=== PATIENT | male | born 2000 | race Caucasian/White ===

== ENCOUNTER 2020-05-24 14:10 | Emergency (ER) | payer SELFPAY ==
--- NOTE | 2020-05-24 15:31 | HMH.EDUTC ---
[facility] [place] Clinical Impression: Exposure to COVID-19 virus Disposition: Home, Self-Care Condition on Discharge: Good Instructions: Preventing the Spread of Coronavirus Discharge Instructions Additional Instructions: You have been tested for COVID19. Those results are generally available in 48-72 hours. Please act as if you are positive and quarantine yourself until results are received. Referrals: PCP,No [Primary Care Provider] - Time of Disposition: 16:06 Medical Decision Making - Cezar Inquiry Pt receiving controlled substance: No Vital Signs: 05/24/20 15:35 Temperature 97.9 F Temperature Source Oral Pulse Rate [Right Brachial] 63 Respiratory Rate 20 Blood Pressure [Right Arm] 122/70 Blood Pressure Mean [Right Arm] 87 Blood Pressure Source [Right Arm] Automatic Cuff Blood Pressure Position [Right Arm] Sitting 02 Sat by Pulse Oximetry 98 Oxygen Delivery Method Room Air - Lab Data Lab results reviewed: Yes: I reviewed the patient's lab results. Orders (Tests/Meds): ORDERS Category Date Time Status SARS-CoV-2, E[place] ([place]) Stat Lab 05/24/20 15:40 Ordered [facility] [place] HPI - General Stated complaint: Sore throat; cough vomiting diarrhea Time Seen by Provider: 05/24/20 15:32 - History of Present Illness Provider Complaint: Sore throat, fever, cough, runny nose, vomiting X 1 week. Coworker positive COVID-19 and work has requested he be tested. Onset (ago): week(s) (1) Location: face Relieving factors: none Exacerbating factors: none Associated symptoms: fever/chills, nausea/vomiting Treatments prior to arrival: none - Related Data Allergies Allergy/AdvReac Type Severity Reaction Status Date / Time No Known Allergies Allergy Verified 05/24/20 15:40 [facility] History - Hepatitis A Screen Attestation statement:: This patient has been screened for Hepatitis A risk factors. I have reviewed the patient's past medical history: Yes ROS Obtained: Yes All systems reviewed & no additional complaints - Constitutional Constitutional: Reports body ache, Reports fever(s) - ENT Ears, Nose, Mouth, and Throat: Reports sore throat - Gastrointestinal Gastrointestingal: Reports: vomiting Physical Exam - General General appearance: alert, in no apparent distress - Head Head exam: atraumatic, normocephalic, normal inspection - Eye Eye exam: Present: normal appearance, PERRL, EOMI - ENT ENT exam: Present: normal exam, normal oropharynx, mucous membranes moist, TM's normal bilaterally, normal external ear exam - Neck Neck exam: Present: normal inspection, full ROM, trachea midline. Absent: meningismus, lymphadenopathy - Chest Chest inspection: Present: normal inspection, symmetric chest wall rise. Absent: tenderness - Respiratory Respiratory exam: Present: normal lung sounds bilaterally. Absent: respiratory distress - Cardiovascular Cardiovascular exam: Present: regular rate, normal rhythm. Absent: JVD - Abdominal Exam Abdominal exam: Present: soft, normal bowel sounds. Absent: distention, tenderness, guarding - Extremities Exam Extremities exam: Present: normal inspection, full ROM, normal capillary refill. Absent: calf tenderness - Back Exam Back exam: Present: normal inspection. Absent: tenderness - Neurological Exam Neurological exam: Present: alert, oriented X3 - Psychiatric Psychiatric exam: Present: normal affect, normal mood - Skin Skin exam: Present: warm, dry, intact, normal color - Lymphatic Lymphatic Findings: no adenopathy
[2020-05-24 15:35] VITALS: BP 122/70; PULSE 63; RESP 20; TEMP 36.6; O2SAT 98; BMI 29.6
[2020-05-24 16:22] VITALS: BP 122/70; PULSE 63; RESP 20; TEMP 36.6; O2SAT 98
[2020-05-25 18:04] LABS: UTC Strep Screen (Rapid) Negative (Negative)
[2020-05-26 09:56] LABS: Covid-19 Nasal PCR Sendout UK Not Detected
== END 2020-05-24 16:26 | disposition home or self-care (01) ==
PROVIDERS: Emergency Provider Physician Assistant
DX: Z20.828 Contact with and (suspected) exposure to other viral communicable diseases (principal); R05 Cough; R50.9 Fever, unspecified
CPT/HCPCS: 87880; 99202; U0003

== ENCOUNTER → 2020-05-24 16:51 | Outpatient (CLI) | payer SELFPAY | PROVIDERS: Visit Provider Physician Assistant | DX: Z03.818 Encounter for observation for suspected exposure to other biological agents ruled out (principal) ==

== ENCOUNTER → 2020-10-04 14:21 | Outpatient (CLI) | payer SELFPAY ==
[2020-10-04 14:25] LABS: Adenovirus,PCR Not Detected (NotDetected); Bordetella Pertussis Not Detected (NotDetected); Chlamydophila Pneumoniae, PCR Not Detected (NotDetected); Coronavirus 19, PCR Not Detected (NotDetected); Coronavirus 229E Not Detected (NotDetected); Coronavirus NL63 Not Detected (NotDetected); Coronavirus OC43 Not Detected (NotDetected); Coronovirus HKU1,PCR Not Detected (NotDetected); Human Metapneumovirus Not Detected (NotDetected); Influenza A, PCR Not Detected (NotDetected); Influenza AH1, 2009 Not Detected (NotDetected); Influenza AH1, PCR Not Detected (NotDetected); Influenza AH3,PCR Not Detected (NotDetected); Influenza B, PCR Not Detected (NotDetected); Mycoplasma Pneumoniae, PCR Not Detected (NotDetected); Parainfluenza 1, PCR Not Detected (NotDetected); Parainfluenza 2, PCR Not Detected (NotDetected); Parainfluenza 3, PCR Not Detected (NotDetected); Parainfluenza 4, PCR Not Detected (NotDetected); Respiratory Syncytial Virus Not Detected (NotDetected); Rhinovirus/Enterovirus Not Detected (NotDetected)
== END ==
PROVIDERS: Visit Provider Otolaryngology
DX: Z03.818 Encounter for observation for suspected exposure to other biological agents ruled out (principal)
CPT/HCPCS: 87581; 87633; 87798

== ENCOUNTER 2020-10-19 17:27 | Emergency (ER) | payer MEDICAID, SELFPAY ==
[2020-10-19 17:53] VITALS: BP 124/78; PULSE 64; RESP 18; TEMP 36.6; O2SAT 99; BMI 32.0
--- NOTE | 2020-10-19 18:00 | HMH.EDUTC ---
[facility] [place] Dis[place] Clinical Impression: Exposure to COVID-19 virus Disposition: Home, Self-Care Condition on Discharge: Good Instructions: Coronavirus Disease 2019, DI for COVID-19 (Suspected or Confirmed ), Preventing the Spread of Coronavirus Discharge Instructions Additional Instructions: *Monitor Temp, Over the counter Motrin or Tylenol as directed/as needed Tylenol every 4 hours and Motrin every 6 hours (as long as your family doctor has told you that you can take it) for fever or pain. and straight to ER if unable to lower temp less than 101.0 after medication given *Warm salt water gargles may help to soothe the throat *Throat Lozenges *Warm fluids like tea with honey may help to soothe the throat *Sleep elevated *Humidifier/Vaporizer Follow up IMMEDIATELY for new or worsening symptoms or no Noticeable improvement over the next 48-72 hours. 911 for difficulty breathing or swallowing You were tested for today for COVID19 your test result should be back in the next 24-48 hours, you may call to the [facility] to see if your test results are back in the next 48 hours [phone] [facility] hours are 9am-9pm You was given a handout with instructions for Self Quarantine and Self isolation for while you wait on test results and what to do if they are positive If you are positive the Health Dept will be contacting you also Referrals: PCP,No [Primary Care Provider] - As needed Forms: Work/School Release Time of Disposition: 18:03 Medical Decision Making - Cezar Inquiry Pt receiving controlled substance: No Cezar was queried for this patient: No Vital Signs: 10/19/20 17:53 Temperature 97.9 F Temperature Source Oral Pulse Rate [Radial] 64 Respiratory Rate 18 Blood Pressure [Right Arm] 124/78 Blood Pressure Mean [Right Arm] 93 Blood Pressure Source [Right Arm] Automatic Cuff Blood Pressure Position [Right Arm] Sitting 02 Sat by Pulse Oximetry 99 Oxygen Delivery Method Room Air Orders (Tests/Meds): ORDERS Category Date Time Status Covid-19 Nasal PCR ([facility]) Routine Lab 10/19/20 17:50 Received [facility] [place] HPI - General Stated complaint: wants Covid test Time Seen by Provider: 10/19/20 18:00 Mode of Arrival: Ambulatory Source of Information: Patient Limitations: No Limitations Description of Symptoms (Recalled from Triage Doc. by RN): covid test HEENT Symptoms (Recalled from RN notes): No Resp Symptoms (Recalled from RN notes): No Skin Symptoms (Recalled from RN notes): No MS Symptoms (Recalled from RN notes): No Functional Status (Recalled from RN notes): wnl - History of Present Illness Provider Complaint: Patient states that he lives with several people and one of them recently tested positive for COVID States that he has not been having any symptoms but wanted to get tested - Related Data Allergies Allergy/AdvReac Type Severity Reaction Status Date / Time No Known Allergies Allergy Verified 05/24/20 15:40 - Worker's Comp Is this a Worker's Comp case?: No [facility] History - Hepatitis A Screen Drug use history?: No High risk sexual behaviors?: No History of sexually transmitted infection?: No Currently employed?: No Childcare worker?: No Do you have indoor plumbing?: Yes Do you have electricity?: Yes Attestation statement:: This patient has been screened for Hepatitis A risk factors. I have reviewed the patient's past medical history: Yes - Social History Alcohol Intake: never Occupational Status: employed ROS Obtained: Yes All systems reviewed & no additional complaints, Yes Systems reviewed as appropriate & no additional complaints - Constitutional Constitutional: Reports system reviewed and no additional complaints, except as docu, Denies body ache, Denies chills, Denies fever(s), Denies headache(s) - ENT Ears, Nose, Mouth, and Throat: Reports system reviewed and no additional complaints, except as docu, Denies sinus pain, Denies sinus pressure, Denies sore throat - Cardiovascular
[2020-10-19 18:06] VITALS: BP 124/78; PULSE 64; RESP 18; TEMP 36.6; O2SAT 99
== END 2020-10-19 18:08 | disposition home or self-care (01) ==
PROVIDERS: Emergency Provider Nurse Practitioner
DX: Z20.828 Contact with and (suspected) exposure to other viral communicable diseases (principal)
CPT/HCPCS: 99201; U0003

== ENCOUNTER 2020-11-05 18:02 | Emergency (ER) | payer BC, OTHER, SELFPAY ==
[2020-11-05 18:03] VITALS: BP 115/70; PULSE 72; RESP 14; TEMP 36.6; O2SAT 98; BMI 32.0
--- NOTE | 2020-11-05 18:34 | HMH.EDUTC ---
[facility] [place] Disposition Clinical Impression: Viral syndrome, Close exposure to COVID-19 virus Disposition: Home, Self-Care Condition on Discharge: Good Instructions: DI for COVID-19 (Suspected or Confirmed ), Preventing the Spread of Coronavirus Discharge Instructions Additional Instructions: Drink plenty of fluids. Take tylenol for pain or fever. Return if you begin to have difficulty breathing. Follow up with your regular doctor. GO TO THE ER FOR ANY WORSENING SYMPTOMS Prescriptions: Ondansetron [Zofran 4mg ODT] 4 mg PO Q8HP PRN #12 tab.rapdis PRN Reason: Nausea Transmission Status: Received by [facility] Benzonatate [Tessalon Perle 100mg Cap] 100 mg PO TIDP PRN #30 cap PRN Reason: Cough Transmission Status: Received by [facility] Azithromycin [Z-Lane 250mg Tab*] 250 mg PO UD DOSE PK #6 tab Transmission Status: Received by [facility] Referrals: PCP,No [Primary Care Provider] - Forms: Work/School Release Time of Disposition: 18:37 Medical Decision Making - Medical Records Medical records reviewed: No: I reviewed the patient's medical records. - Cezar Inquiry Pt receiving controlled substance: No Vital Signs: 11/05/20 18:03 11/05/20 18:43 Temperature 97.8 F 97.8 F Temperature Source Oral Oral Pulse Rate 72 Pulse Rate [Right] 72 Respiratory Rate 14 14 Blood Pressure 115/70 Blood Pressure [Right Arm] 115/70 Blood Pressure Mean [Right Arm] 85 02 Sat by Pulse Oximetry 98 Orders (Tests/Meds): ORDERS Category Date Time Status Covid-19 Nasal PCR Sendout P&[facility] Routine Lab 11/05/20 18:25 Received [facility] [place] HPI - General Stated complaint: Covid test; fever; loss of taste/smell Time Seen by Provider: 11/05/20 18:35 Description of Symptoms (Recalled from Triage Doc. by RN): pt request COVID pt c/o loss of taste smell, fever, sore throat HEENT Symptoms (Recalled from RN notes): Yes Resp Symptoms (Recalled from RN notes): Yes Skin Symptoms (Recalled from RN notes): No MS Symptoms (Recalled from RN notes): No Functional Status (Recalled from RN notes): wnl - History of Present Illness Provider Complaint: He states that since yesterday evening he has began to feel bad. He has body aches, head ache, nausea, a dry cough and a sore throat. His was diagnosed with COVID-19 about 5 days ago. - Related Data Previous Rx's Medication Instructions Recorded Azithromycin [Z-Lane 250mg Tab*] 250 mg PO UD DOSE PK #6 tab 11/05/20 Benzonatate [Tessalon Perle 100mg 100 mg PO TIDP PRN #30 cap 11/05/20 Cap] Ondansetron [Zofran 4mg ODT] 4 mg PO Q8HP PRN #12 tab.rapdis 11/05/20 Allergies Allergy/AdvReac Type Severity Reaction Status Date / Time No Known Allergies Allergy Verified 11/05/20 18:29 - Worker's Comp Is this a Worker's Comp case?: No Is this an [facility] Worker's Comp?: No Is this a [place] Worker's Comp?: No [facility] History - Hepatitis A Screen Drug use history?: No High risk sexual behaviors?: No History of sexually transmitted infection?: No Currently employed?: No Childcare worker?: No Do you have indoor plumbing?: Yes Do you have electricity?: Yes Attestation statement:: This patient has been screened for Hepatitis A risk factors. I have reviewed the patient's past medical history: Yes - Social History Alcohol Intake: never Occupational Status: employed ROS Obtained: Yes All systems reviewed & no additional complaints - Constitutional Constitutional: Reports system reviewed and no additional complaints, except as docu - Eyes Eyes: Reports system reviewed and no additional complaints, except as docu - ENT Ears, Nose, Mouth, and Throat: Reports system reviewed and no additional complaints, except as docu - Cardiovascular Cardiovascular: Reports system reviewed and no additional complaints, except as docu - Respiratory Respiratory: Reports system reviewed and no additional complaints, except as docu - Gastro
[2020-11-05 18:43] VITALS: BP 115/70; PULSE 72; RESP 14; TEMP 36.6; O2SAT 98
[2020-11-07 10:37] LABS: Covid-19 Nasal PCR Sendout P&C POSITIVE
--- NOTE | 2020-11-07 10:40 | PC.NURSE ---
PATIENT NOTIFIED OF POSITIVE COVID TEST AT THIS TIME
== END 2020-11-05 18:48 | disposition home or self-care (01) ==
PROVIDERS: Emergency Provider Nurse Practitioner Family
DX: U07.1 COVID-19 (principal); B34.9 Viral infection, unspecified
CPT/HCPCS: 99202; G0463; U0004

== ENCOUNTER 2021-06-27 12:57 | Emergency (ER) | payer BC, SELFPAY ==
[2021-06-27 12:57] VITALS: BP 123/80; PULSE 64; RESP 18; TEMP 36.7; O2SAT 98; BMI 28.4
--- NOTE | 2021-06-27 14:06 | HMH.EDUTC ---
[facility] [place] Clinical Impression: Encounter for screening for COVID-19, Exposure to COVID-19 virus Disposition: Home, Self-Care Condition on Discharge: Good Instructions: DI for COVID-19 (Suspected or Confirmed ), Preventing the Spread of Coronavirus Discharge Instructions Additional Instructions: Drink plenty of fluids. Take tylenol or ibuprofen for pain or fever. Follow up with your regular doctor. GO TO THE ER FOR ANY WORSENING SYMPTOMS Quarantine until you know the results of your covid-19 test. If it is positive, the health department should call you and give you further instructions about your length of Quarantine and other things. Notify your school or workplace of your results and follow their instructions regarding return to work/school. Referrals: Provider,Referral, [Primary Care Provider] - Time of Disposition: 14:07 Medical Decision Making - Medical Records Medical records reviewed: No: I reviewed the patient's medical records. - Cezar Inquiry Pt receiving controlled substance: No [facility] [place] - General Stated complaint: covid test Time Seen by Provider: 06/27/21 14:06 - History of Present Illness Provider Complaint: He is here to get a covid test because his employer wants him to. He denies any symptoms or exposure. - Related Data Previous Rx's Medication Instructions Recorded Azithromycin [Z-Lane 250mg Tab*] 250 mg PO UD DOSE PK #6 tab 11/05/20 Benzonatate [Tessalon Perle 100mg 100 mg PO TIDP PRN #30 cap 11/05/20 Cap] Ondansetron [Zofran 4mg ODT] 4 mg PO Q8HP PRN #12 tab.rapdis 11/05/20 Allergies Allergy/AdvReac Type Severity Reaction Status Date / Time No Known Allergies Allergy Verified 11/05/20 18:29 [facility] History - Hepatitis A Screen Attestation statement:: This patient has been screened for Hepatitis A risk factors. I have reviewed the patient's past medical history: Yes - Social History Alcohol Intake: never Occupational Status: employed ROS Obtained: Yes All systems reviewed & no additional complaints - Constitutional Constitutional: Reports system reviewed and no additional complaints, except as docu - Eyes Eyes: Reports system reviewed and no additional complaints, except as docu - ENT Ears, Nose, Mouth, and Throat: Reports system reviewed and no additional complaints, except as docu - Cardiovascular Cardiovascular: Reports system reviewed and no additional complaints, except as docu - Respiratory Respiratory: Reports system reviewed and no additional complaints, except as docu - Gastrointestinal Gastrointestingal: Reports: system reviewed and no additional complaints, except as docu Physical Exam - General General appearance: alert, in no apparent distress - Head Head exam: atraumatic, normocephalic, normal inspection - Eye Eye exam: Present: normal appearance, PERRL, EOMI - ENT ENT exam: Present: normal exam, normal oropharynx, mucous membranes moist, TM's normal bilaterally, normal external ear exam - Neck Neck exam: Present: normal inspection, full ROM, trachea midline. Absent: meningismus, lymphadenopathy - Chest Chest inspection: Present: normal inspection, symmetric chest wall rise. Absent: tenderness - Respiratory Respiratory exam: Present: normal lung sounds bilaterally. Absent: respiratory distress - Cardiovascular Cardiovascular exam: Present: regular rate, normal rhythm. Absent: JVD - Abdominal Exam Abdominal exam: Present: soft, normal bowel sounds. Absent: distention, tenderness, guarding - Extremities Exam Extremities exam: Present: normal inspection, full ROM, normal capillary refill. Absent: calf tenderness - Back Exam Back exam: Present: normal inspection. Absent: tenderness - Neurological Exam Neurological exam: Present: alert, oriented X3 - Psychiatric Psychiatric exam: Present: normal affect, normal mood - Skin Skin exam: Present: warm, dry, intact, normal color
[2021-06-27 14:31] VITALS: BP 123/80; PULSE 64; RESP 18; TEMP 36.7; O2SAT 98
--- NOTE | 2021-06-30 15:04 | PC.NURSE ---
INFORMED PATIENT THAT HE IS POSITIVE
== END 2021-06-27 14:33 | disposition home or self-care (01) ==
PROVIDERS: Emergency Provider Nurse Practitioner Family
DX: Z11.52 Encounter for screening for COVID-19 (principal)
CPT/HCPCS: 99202; G0463; U0003

== ENCOUNTER 2021-09-26 10:41 | Emergency (ER) | payer BC, SELFPAY ==
[2021-09-26 13:02] VITALS: BP 134/68; PULSE 69; RESP 18; TEMP 36.6; O2SAT 98; BMI 29.6
--- NOTE | 2021-09-26 13:06 | HMH.EDUTC ---
[facility] Disposition Clinical Impression: Strep throat Disposition: Home, Self-Care Condition on Discharge: Good Instructions: DI for Strep Throat, Strep Throat Additional Instructions: Drink plenty of fluids. Take tylenol or ibuprofen for pain or fever. Take the medications as directed. Follow up with your regular doctor. GO TO THE ER FOR ANY WORSENING SYMPTOMS Throw your tooth brush away and get a new one. Prescriptions: Brompheniramine/Pseudoephed/Dm [Bromfed Dm Cough Syrup] 5 ml PO Q6HP PRN #240 ml PRN Reason: Cough Transmission Status: Pending to [facility] Amoxicillin/Potassium Clav [Augmentin 875-125 Tablet] 1 tab PO Q12H 10 Days #20 tab Transmission Status: Pending to [facility] predniSONE [Deltasone 10mg tablet] 10 mg PO BID 3 Days #6 tab Transmission Status: Pending to [facility] Referrals: Provider,Referral, MD [Primary Care Provider] - Forms: Work/School Release Time of Disposition: 13:42 Medical Decision Making - Medical Records Medical records reviewed: No: I reviewed the patient's medical records. - Cezar Inquiry Pt receiving controlled substance: No Vital Signs: 09/26/21 13:02 Temperature 97.8 F Temperature Source Oral Pulse Rate [Left] 69 Respiratory Rate 18 Blood Pressure [Right Arm] 134/68 Blood Pressure Mean [Right Arm] 90 02 Sat by Pulse Oximetry 98 - Lab Data Lab results reviewed: Yes: I reviewed the patient's lab results. Lab Results 09/26/21 13:04: Strep Scn [facility] Positive A 09/26/21 13:04: Influenza Type A Ag Negative, Influenza Type B Ag Negative [facility] HPI - General Stated complaint: covid symptoms Time Seen by Provider: 09/26/21 13:06 - History of Present Illness Provider Complaint: He c/o sore throat, fever, chills, body aches and a dry cough for the past 2 days. He has had covid-19 in the past and he states that he doesn't feel like this is covid, but he would like to be tested for flu and strep throat. He has been exposed to strep throat last week. - Related Data Previous Rx's Medication Instructions Recorded Azithromycin [Z-Lane 250mg Tab*] 250 mg PO UD DOSE PK #6 tab 11/05/20 Benzonatate [Tessalon Perle 100mg 100 mg PO TIDP PRN #30 cap 11/05/20 Cap] Ondansetron [Zofran 4mg ODT] 4 mg PO Q8HP PRN #12 tab.rapdis 11/05/20 Amoxicillin/Potassium Clav 1 tab PO Q12H 10 Days #20 tab 09/26/21 [Augmentin 875-125 Tablet] Brompheniramine/Pseudoephed/Dm 5 ml PO Q6HP PRN #240 ml 09/26/21 [Bromfed Dm Cough Syrup] predniSONE [Deltasone 10mg tablet] 10 mg PO BID 3 Days #6 tab 09/26/21 Allergies Allergy/AdvReac Type Severity Reaction Status Date / Time No Known Allergies Allergy Verified 11/05/20 18:29 [facility] History - Hepatitis A Screen Attestation statement:: This patient has been screened for Hepatitis A risk factors. I have reviewed the patient's past medical history: Yes - Social History Alcohol Intake: never Occupational Status: employed ROS Obtained: Yes All systems reviewed & no additional complaints - Constitutional Constitutional: Reports as per HPI - Eyes Eyes: Denies eye discharge - ENT Ears, Nose, Mouth, and Throat: Reports as per HPI - Cardiovascular Cardiovascular: Denies chest pain - Respiratory Respiratory: Denies chest congestion, Reports cough, Denies dyspnea, Denies cough with sputum production, Denies stridor, Denies wheezing Physical Exam - General General appearance: alert, in no apparent distress - Head Head exam: atraumatic, normocephalic, normal inspection - Eye Eye exam: Present: normal appearance, PERRL, EOMI - ENT ENT exam: Present: mucous membranes moist, normal external ear exam - Expanded ENT Exam TM/Canal exam: Bilateral TM: erythema, bulging Nose exam: Present: sinus tenderness Nasal speculum exam: Bilateral: normal Mouth exam: Present: normal external inspection, tongue normal. Absent: drooling Teeth exam: Presen
[2021-09-26 13:26] LABS: UTC Influenza A Antigen Negative (Negative)
[2021-09-26 13:27] LABS: UTC Influenza B Antigen Negative (Negative)
[2021-09-26 13:28] LABS: UTC Strep Screen (Rapid) Positive (Negative)
[2021-09-26 13:48] VITALS: BP 134/68; PULSE 69; RESP 18; TEMP 36.6
== END 2021-09-26 13:49 | disposition home or self-care (01) ==
PROVIDERS: Emergency Provider Nurse Practitioner Family
DX: J02.0 Streptococcal pharyngitis (principal)
CPT/HCPCS: 87804; 87880; 99203; G0463

== ENCOUNTER 2021-09-29 17:10 | Emergency (ER) | payer BC, SELFPAY ==
[2021-09-29 17:38] VITALS: BP 129/78; PULSE 98; RESP 18; TEMP 37.5; O2SAT 99; BMI 28.8
[2021-09-29 18:30] VITALS: BP 129/78; PULSE 98; RESP 18; TEMP 37.5; O2SAT 99; BMI 28.9
--- NOTE | 2021-09-29 19:13 | HMH.EDUTC ---
[facility] [place] Disposition Clinical Impression: Pilonidal abscess Disposition: Home, Self-Care Condition on Discharge: Good Instructions: Pilonidal Cyst, Trimethoprim/Sulfamethoxazole (Alternative Therapy) Additional Instructions: Warm soaks in warm water with Epson salt or place rag with solution on area to help with pressure and drainage Stop taking Augmentin and start taking your Cephalexin and Bactrim Follow up with Family Doctor once you have a lesion here it may need to be surgically removed it may return Return if needed Straight to ER if any life threatening symptoms Call back to the [facility] in the next 48 hours to check on your wound culture to make sure that you are on the correct antibiotic Prescriptions: Sulfamethoxazole/Trimethoprim [Bactrim DS tablet] 1 each PO BID 10 Days #20 tab Transmission Status: Pending to [facility] cephALEXin [cephALEXin 500mg capsule*] 500 mg PO TID 10 Days #30 cap [facility] Status[facility] Referrals: Provider,Referral, MD [Primary Care Provider] - As needed Time of Disposition: 19:25 Medical Decision Making - Cezar Inquiry Pt receiving controlled substance: No Cezar was queried for this patient: No Vital Signs: 09/29/21 17:38 09/29/21 18:30 Temperature 99.5 F 99.5 F Temperature Source Oral Oral Pulse Rate [Left Radial] 98 H 98 H Respiratory Rate 18 18 Blood Pressure [Right Arm] 129/78 129/78 Blood Pressure Mean [Right Arm] 95 95 Blood Pressure Source [Right Arm] Automatic Cuff Automatic Cuff Blood Pressure Position [Right Arm] Sitting 02 Sat by Pulse Oximetry 99 99 Oxygen Delivery Method Room Air Room Air Medical Decision Narrative: Medication discussed and dosed per pharmacy area on buttock area opened and draining [facility] [place] HPI - General Stated complaint: tailbone pain/knot x 3 days Time Seen by Provider: 09/29/21 19:14 Mode of Arrival: Ambulatory Source of Information: Patient Limitations: No Limitations Description of Symptoms (Recalled from Triage Doc. by RN): PATIENT C/O PAIN NEAR TAILBONE, NO KNOWN INJURY HEENT Symptoms (Recalled from RN notes): No Resp Symptoms (Recalled from RN notes): No Skin Symptoms (Recalled from RN notes): No MS Symptoms (Recalled from RN notes): No Functional Status (Recalled from RN notes): WNL - History of Present Illness Provider Complaint: Patient states that he has a sore area at the top of tailbone area States that he feels like there is pressure there and hurts when he sits, lays or stands States that today it was hurting worse so he came in to get it checked out - Related Data Previous Rx's Medication Instructions Recorded Azithromycin [Z-Lane 250mg Tab*] 250 mg PO UD DOSE PK #6 tab 11/05/20 Benzonatate [Tessalon Perle 100mg 100 mg PO TIDP PRN #30 cap 11/05/20 Cap] Ondansetron [Zofran 4mg ODT] 4 mg PO Q8HP PRN #12 tab.rapdis 11/05/20 Amoxicillin/Potassium Clav 1 tab PO Q12H 10 Days #20 tab 09/26/21 [Augmentin 875-125 Tablet] Brompheniramine/Pseudoephed/Dm 5 ml PO Q6HP PRN #240 ml 09/26/21 [Bromfed Dm Cough Syrup] predniSONE [Deltasone 10mg tablet] 10 mg PO BID 3 Days #6 tab 09/26/21 Sulfamethoxazole/Trimethoprim 1 each PO BID 10 Days #20 tab 09/29/21 [Bactrim DS tablet] cephALEXin [cephALEXin 500mg 500 mg PO TID 10 Days #30 cap 09/29/21 capsule*] Allergies Allergy/AdvReac Type Severity Reaction Status Date / Time No Known Allergies Allergy Verified 11/05/20 18:29 - Worker's Comp Is this a Worker's Comp case?: No [facility] History - Hepatitis A Screen Drug use history?: No High risk sexual behaviors?: No History of sexually transmitted infection?: No Currently employed?: No Childcare worker?: No Do you have indoor plumbing?: Yes Do you have electricity?: Yes Attestation statement:: This patient has been screened for Hepatitis A risk factors. I have reviewed the patient's past medical history: Yes - Social History Alcohol Intake: never Occupational Stat
[2021-09-29 19:28] VITALS: BP 129/78; PULSE 98; RESP 18; TEMP 37.5; O2SAT 99
== END 2021-09-29 19:32 | disposition home or self-care (01) ==
PROVIDERS: Emergency Provider Nurse Practitioner
DX: L05.01 Pilonidal cyst with abscess (principal)
CPT/HCPCS: 10060; 87070; 87077; 87186; 87205; 99202; G0463

== ENCOUNTER 2022-09-05 04:31 | Emergency (ER) | payer BC, SELFPAY ==
[2022-09-05 04:32] VITALS: BP 122/72; PULSE 73; RESP 16; TEMP 36.9; O2SAT 98; BMI 28.4
--- NOTE | 2022-09-05 04:45 | HMH.EDDENT ---
Discharge Plan Disposition Patient Disposition: Home, Self-Care Prescriptions Prescriptions: New cephalexin [cephalexin] 500 mg capsule 500 mg PO TID Qty: 30 0RF ketorolac 10 mg tablet 10 mg PO Q6H 5 Days Qty: 20 0RF Referrals Follow up/Referrals: Provider,Referral, MD [Primary Care Provider] - See instructions Discharge ED Provider: [facility] HPI General Chief complaint: Dental/Oral Stated complaint: toothache Time Seen by Provider: 09/05/22 04:45 Mode of Arrival: Ambulatory Source of Information: Patient Limitations: No Limitations Description of Symptoms (Recalled from ER Triage Doc. by RN): pt c/o lt upper tooth pain. pt when to dentist but doesn't have insurance so dentist unable to do anything History of Present Illness HPI Narrative: pt with dental pain shivani upper dental on lt MD Complaint: tooth pain Onset (ago): day(s) Duration: intermittent Severity: moderate Context: history of dental caries and poor dental care Associated symptoms: gum swelling Treatment prior to arrival: none Related Data Previous Rx's Medication Instructions Recorded cephalexin 500 mg capsule 500 mg PO TID #30 caps 09/05/22 ketorolac 10 mg tablet 10 mg PO Q6H 5 days #20 tabs 09/05/22 Allergies Allergy/AdvReac Type Severity Reaction Status Date / Time No Known Allergies Allergy Verified 11/05/20 18:29 PFSH PFSH Social History Smoking Status: Current every day smoker alcohol intake: never current occupational status: employed Travel in the last 8 weeks: None ROS Obtained: Yes All systems reviewed & no additional complaints except as documented Physical Exam General General appearance: alert Head Head exam: normocephalic Eye Eye exam: Present PERRL and EOMI ENT ENT exam: Present mucous membranes moist Expanded ENT Exam Teeth exam: Present dental caries, dental tenderness # and gingival swelling Neck Neck exam: Present full ROM Respiratory Respiratory exam: Absent respiratory distress Cardiovascular Cardiovascular exam: Present regular rate Extremities Exam Extremities exam: Present full ROM Neurological Exam Neurological exam: Present alert and CN II-XII intact Skin Skin exam: Absent rash Medical Decision Making Medical Records Medical records reviewed: Yes I reviewed the patient's medical records. [facility] Inquiry Pt receiving controlled substance: No Vital Signs: 09/05/22 04:32 Temperature 98.4 F Temperature Source Oral Pulse Rate [Right] 73 Respiratory Rate 16 Blood Pressure [Right Arm] 122/72 Blood Pressure Mean [Right Arm] 88 02 Sat by Pulse Oximetry 98 Lab Data Lab results reviewed: Yes I reviewed the patient's lab results. Medical Decision Narrative: acute dental pain with caies and gingival disease Critical Care Time Critical Care Time Critical Care Time: No Attestation: On 09/05/22, the high probability of a clinically significant, sudden or life threatening deterioration of the following system(s) required my full and direct attention, intervention and personal management. The time I documented below is in addition to time spent performing reported procedures but includes the following listed in this critical care notation.
[2022-09-05 05:03] VITALS: BP 124/80; PULSE 70; RESP 16; TEMP 36.9; O2SAT 97
== END 2022-09-05 05:04 | disposition home or self-care (01) ==
PROVIDERS: Emergency Provider Emergency Medicine
DX: K04.7 Periapical abscess without sinus (principal)
CPT/HCPCS: 96372; 99283; J0696

== ENCOUNTER 2022-12-16 04:36 | Emergency (ER) | payer BC, SELFPAY ==
[2022-12-16 04:37] VITALS: BP 122/85; PULSE 85; RESP 16; TEMP 37.2; O2SAT 99; BMI 28.8
--- NOTE | 2022-12-16 04:55 | HMH.EDDENT ---
Discharge Plan Disposition Patient Disposition: Home, Self-Care Condition: Good Prescriptions Prescriptions: New amoxicillin-pot clavulanate [Augmentin] 500-125 mg tablet 1 tab PO TID Qty: 30 0RF ibuprofen 600 mg tablet 600 mg PO Q6H PRN (Reason: fever or pain) Qty: 40 0RF acetaminophen [Tylenol Extra Strength] 500 mg tablet 500 mg PO Q6H PRN (Reason: fever or pain) Qty: 30 0RF No Action cephalexin [cephalexin] 500 mg capsule 500 mg PO TID Qty: 30 0RF ketorolac 10 mg tablet 10 mg PO Q6H 5 Days Qty: 20 0RF Referrals Follow up/Referrals: Provider,Referral, MD [Primary Care Provider] - See instructions Clinical Impressions Clinical Impression: Dental abscess Discharge ED Provider: Sangeeta Niño HPI General Stated complaint: Abcess in mouth Time Seen by Provider: 12/16/22 04:43 Mode of Arrival: Ambulatory Source of Information: Patient Limitations: No Limitations History of Present Illness HPI Narrative: Patient is a 22-year-old male who is here secondary to left upper tooth ache. Patient has a known history of grinding his teeth. Patient's multiple teeth have fractured. The left upper tooth has fractured there is some swelling pain in the left upper tooth so patient brought himself into the ER. Patient denies any fever or chills. Patient stated that there was some swelling when he woke up yesterday morning. This early this morning the swelling got worse so he got scared and brought himself into the ER. He made an appointment to go see a dentist on but since pain and swelling was worse so he brought himself in at 4:00 in the morning. MD Complaint: tooth pain Location: Tooth # 1. tooth fracture, gum swelling Onset (ago): day(s) Duration: constant Severity: moderate Severity scale (1-10): 8 Relieving factors: nothing Exacerbating factors: chewing, cold, heat and drinking fluids Context: history of dental caries Associated symptoms: gum swelling Treatment prior to arrival: none Related Data Previous Rx's Medication Instructions Recorded acetaminophen 500 mg tablet 500 mg PO Q6H PRN fever or pain 12/16/22 (Tylenol Extra Strength) #30 tabs amoxicillin 500 mg-potassium 1 tab PO TID #30 tabs 12/16/22 clavulanate 125 mg tablet (Augmentin) ibuprofen 600 mg tablet 600 mg PO Q6H PRN fever or pain 12/16/22 #40 tabs Allergies Allergy/AdvReac Type Severity Reaction Status Date / Time No Known Allergies Allergy Verified 11/05/20 18:29 [facility] Disclaimer: The information contained in this section may have been updated after the patient was seen, as this information can be updated by other users. Social History Smoking Status: Current every day smoker alcohol intake: never current occupational status: employed Travel in the last 8 weeks: None ROS Obtained: Yes All systems reviewed & no additional complaints except as documented Constitutional Constitutional: Reports system reviewed and no additional complaints, except as documented Eyes Eyes: Reports system reviewed and no additional complaints, except as documented ENT Ears, Nose, Mouth, and Throat: Reports dental pain Cardiovascular Cardiovascular: Reports system reviewed and no additional complaints, except as documented Respiratory Respiratory: Reports system reviewed and no additional complaints, except as documented Gastrointestinal Gastrointestingal: Reports system reviewed and no additional complaints, except as documented Genitourinary Male Genitourinary: Reports system reviewed and no additional complaints, except as documented Musculoskeletal Musculoskeletal: Reports system reviewed and no additional complaints, except as documented Integumentary/Breasts Skin/Breast: Reports system reviewed and no additional complaints, except as documented Neurologic Neurologic: Reports system reviewed and no additional complaints,
[2022-12-16 05:02] VITALS: BP 120/80; PULSE 83; RESP 18; TEMP 36.6; O2SAT 97
== END 2022-12-16 05:05 | disposition home or self-care (01) ==
PROVIDERS: Emergency Provider Emergency Medicine
DX: K04.7 Periapical abscess without sinus (principal); F17.210 Nicotine dependence, cigarettes, uncomplicated
CPT/HCPCS: 99283; 99284

== ENCOUNTER 2022-12-16 17:15 | Emergency (ER) | payer BC, SELFPAY ==
[2022-12-16 17:30] VITALS: BP 118/85; PULSE 74; RESP 20; TEMP 37.1; O2SAT 98; BMI 28.8
--- NOTE | 2022-12-16 17:47 | EXP.UTC ---
Discharge Plan Disposition Patient Disposition: Home, Self-Care Condition: Good Prescriptions Prescriptions: No Action amoxicillin-pot clavulanate [Augmentin] 500-125 mg tablet 1 tab PO TID Qty: 30 0RF ibuprofen 600 mg tablet 600 mg PO Q6H PRN (Reason: fever or pain) Qty: 40 0RF acetaminophen [Tylenol Extra Strength] 500 mg tablet 500 mg PO Q6H PRN (Reason: fever or pain) Qty: 30 0RF Referrals Follow up/Referrals: Provider,Referral, MD [Primary Care Provider] - See instructions Activity Restrictions/Add. Instructions Additional Instructions/Restrictions: *Monitor Temp, Over the counter Motrin or Tylenol as directed/as needed Tylenol every 4 hours and Motrin every 6 hours (as long as your family doctor has told you that you can take it) for fever or pain. and straight to ER if unable to lower temp less than 101.0 after medication given *Warm salt water gargles may help to soothe the throat *Throat Lozenges? *Warm fluids like tea with honey may help to soothe the throat? *Sleep elevated *Humidifier/Vaporizer Follow up IMMEDIATELY for new or worsening symptoms or no Noticeable improvement over the next 48-72 hours. 911 for difficulty breathing or swallowing You were tested for today for COVID19 your test result should be back in the next 24-48 hours, you may check your results on the [facility] Clinical Impressions Clinical Impression: Encounter for laboratory testing for COVID-19 virus Stand Alone Forms Stand Alone Forms: Work/School Release Instructions Patient Instructions: COVID-19 Viral Test, DI for COVID-19 (Suspected or Confirmed ), Preventing the Spread of Coronavirus Discharge Instructions Discharge ED Provider: Serene Turner [facility] [place] HPI General Stated complaint: covid test, SOA, weak Mode of Arrival: Ambulatory Source of Information: Patient Limitations: No Limitations Time Seen by Provider: 12/16/22 17:47 Description of Symptoms (Recalled from Triage Doc. by RN): PATIENT C/O FEVER (THIS MORNING), SOA, LOSS OF TASTE, AND COUGH X 2 DAYS HEENT Symptoms (Recalled from RN notes): Yes Resp Symptoms (Recalled from RN notes): Yes Skin Symptoms (Recalled from RN notes): No MS Symptoms (Recalled from RN notes): No Functional Status (Recalled from RN notes): WNL History of Present Illness Provider Complaint: Patient states that he wants to get tested for COVID States he was seen and treated last night for dental abscess States that this morning he had a little fever and felt a little SOA with cough States that he also noticed that the abscess in his mouth opened up and started draining States that he has appointment in the morning with dentist and wanted to get checked for COVID first and is Related Data Previous Rx's Medication Instructions Recorded acetaminophen 500 mg tablet 500 mg PO Q6H PRN fever or pain 12/16/22 (Tylenol Extra Strength) #30 tabs amoxicillin 500 mg-potassium 1 tab PO TID #30 tabs 12/16/22 clavulanate 125 mg tablet (Augmentin) ibuprofen 600 mg tablet 600 mg PO Q6H PRN fever or pain 12/16/22 #40 tabs Allergies Allergy/AdvReac Type Severity Reaction Status Date / Time No Known Allergies Allergy Verified 11/05/20 18:29 Worker's Comp Is this a Worker's Comp case?: No [facility] Disclaimer: The information contained in this section may have been updated after the patient was seen, as this information can be updated by other users. Social History Smoking Status: Current every day smoker alcohol intake: never current occupational status: employed Travel in the last 8 weeks: None ROS Obtained: Yes All systems reviewed & no additional complaints except as documented and Yes Systems reviewed as appropriate & no additional complaints except as documented Constitutional Constitutional: Reports system reviewed and no additional complaints, except as docu
[2022-12-16 18:04] VITALS: BP 118/85; PULSE 74; RESP 20; TEMP 37.1; O2SAT 98
== END 2022-12-16 18:06 | disposition home or self-care (01) ==
PROVIDERS: Emergency Provider Nurse Practitioner
DX: Z20.822 Contact with and (suspected) exposure to COVID-19 (principal); R06.02 Shortness of breath; R53.1 Weakness
CPT/HCPCS: 87070; 87077; 87186; 87205; 99212; C9803; G0463; U0003; U0005

== ENCOUNTER 2023-07-15 08:27 | Emergency (ER) | payer BC, SELFPAY ==
[2023-07-15 08:40] VITALS: BP 137/63; PULSE 91; RESP 20; TEMP 37; O2SAT 97; BMI 28.8
[2023-07-15 08:50] LABS: UTC Strep Screen (Rapid) Positive (Negative)
--- NOTE | 2023-07-15 08:51 | EXP.UTC ---
Discharge Plan Disposition Patient Disposition: Home, Self-Care Condition: Good Prescriptions Prescriptions: New cefdinir 300 mg capsule 300 mg PO BID Qty: 20 0RF pseudoephedrine HCl [Sudafed 12 Hour] 120 mg tablet extended release 120 mg PO Q12H PRN (Reason: nasal congestion) Qty: 20 0RF guaifenesin [Mucinex] 600 mg tablet extended release 12hr 1,200 mg PO BID PRN (Reason: cough) Qty: 20 0RF Referrals Follow up/Referrals: Provider,Referral, MD [Primary Care Provider] - See instructions Activity Restrictions/Add. Instructions Additional Instructions/Restrictions: *Monitor Temp, Over the counter Motrin or Tylenol as directed/as needed Tylenol every 4 hours and Motrin every 6 hours (as long as your family doctor has told you that you can take it) for fever or pain. and straight to ER if unable to lower temp less than 101.0 after medication given *Warm salt water gargles may help to soothe the throat *Throat Lozenges? *Warm fluids like tea with honey may help to soothe the throat? *Sleep elevated *Humidifier/Vaporizer *If you did not take Penicillin shot or was unable to, start taking antibiotic immediately and make sure that you take it for the FULL length of time although you should start to feel better in 24-48 hours *change toothbrush and toothpaste 24-48 hours after starting to take antibiotics so you do not reinfect yourself Monitor Temp. Tylenol and/or Ibuprofen as needed. ER if fever is no less than 101 despite alternating Tylenol and Ibuprofen * Encourage fluids, water, Gatorade, powerade, pedialyte if infant/toddler/or child *Cold fluids, popsicles and ice cream may feel good on his throat Follow up IMMEDIATELY for new or worsening symptoms or no Noticeable improvement over the next 48-72 hours. 911 for difficulty breathing or swallowing Clinical Impressions Clinical Impression: Strep throat Stand Alone Forms Stand Alone Forms: Work/School Release Instructions Patient Instructions: DI for Strep Throat Discharge ED Provider: Serene Turner [facility] [place] HPI General Stated complaint: suspected strep, covid Time Seen by Provider: 07/15/23 08:45 History of Present Illness Provider Complaint: Patient states that he has been having sore throat, sinus pain and pressure body aches fever, and chills for a couple of days States that it hurts when he swallows and having drainage from his nose States that this morning he had a fever of 101.0 again so he came in to get checked worried he may have strep or COVID States at times he will cough up some mucous draining in his throat Related Data Previous Rx's Medication Instructions Recorded cefdinir 300 mg capsule 300 mg PO BID #20 caps 07/15/23 guaifenesin 600 mg tablet, 1,200 mg PO BID PRN cough #20 tabs 07/15/23 extended release 12 hr (Mucinex) pseudoephedrine HCl 120 mg 120 mg PO Q12H PRN nasal 07/15/23 tablet,extended release (Sudafed congestion #20 tabs 12 Hour) Allergies Allergy/AdvReac Type Severity Reaction Status Date / Time No Known Allergies Allergy Verified 11/05/20 18:29 [facility] Disclaimer: The information contained in this section may have been updated after the patient was seen, as this information can be updated by other users. Medical History (Updated 07/15/23 @ 08:59 by Serene Turner APRN) No significant past medical history Social History Smoking Status: Current every day smoker alcohol intake: never current occupational status: employed Travel in the last 8 weeks: None ROS Obtained: Yes All systems reviewed & no additional complaints except as documented and Yes Systems reviewed as appropriate & no additional complaints except as documented Constitutional Constitutional: Reports system reviewed and no additional complaints, except as documented, Reports as per HPI, Reports body ache, Reports chills
[2023-07-15 09:05] VITALS: BP 137/63; PULSE 91; RESP 20; TEMP 37; O2SAT 97
== END 2023-07-15 09:13 | disposition home or self-care (01) ==
PROVIDERS: Emergency Provider Nurse Practitioner
DX: J02.0 Streptococcal pharyngitis (principal); R50.9 Fever, unspecified; F17.210 Nicotine dependence, cigarettes, uncomplicated
CPT/HCPCS: 87635; 87880; 99212; 99214; G0463